=== PATIENT | female | born 1985 | race Caucasian/White ===

== ENCOUNTER 2017-04-16 18:03 | Emergency (ER) | payer BC ==
[2017-04-16 18:14] VITALS: BP 136/72
--- NOTE | 2017-04-16 18:17 | UC ---
HPI Febrile Illness - HPI Summary HPI Summary: 31 female presents with complains of headache, sinus congestion, and sore throat. - History of Current Complaint Chief Complaint: UCGeneralIllness Time Seen by Provider: 04/16/17 18:16 - Allergy/Home Medications Allergies/Adverse Reactions: Allergies Allergy/AdvReac Type Severity Reaction Status Date / Time No Known Allergies Allergy Verified 04/16/17 18:09 Home Medications: Home Medications Control Pill 1 tab PO DAILY 04/16/17 [History Confirmed 04/16/17] Ibuprofen TAB* [Advil TAB*] 400 mg PO Q6H PRN 04/16/17 [History Confirmed ] Multivitamins/Minerals TAB* [Thera M Plus TAB*] 1 tab PO DAILY 04/16/17 [ History Confirmed 04/16/17] PMH/Surg Hx/FS Hx/Imm Hx Endocrine/Hematology History: Denies: Hx Diabetes, Hx Thyroid Disease Cardiovascular History: Denies: Hx Hypertension Respiratory History: Denies: Hx Asthma, Hx Chronic Obstructive Pulmonary Disease (COPD) GI History: Denies: Hx Ulcer Infectious Disease History: No Infectious Disease History: Denies: Hx Hepatitis, Hx Human Immunodeficiency Virus (HIV), History Other Infectious Disease, Traveled Outside the [place] in Last 30 Days - Social History Alcohol Use: None Substance Use Type: Reports: None Smoking Status (MU): Never Smoked Tobacco Have You Smoked in the Last Year: No Review of Systems Constitutional: Negative, Fatigue Skin: Negative Eyes: Negative ENT: Sore Throat, Nasal Discharge, Sinus Congestion Respiratory: Negative Cardiovascular: Negative Gastrointestinal: Negative Genitourinary: Negative Motor: Negative Neurovascular: Negative Musculoskeletal: Negative Neurological: Headache Psychological: Negative All Other Systems Reviewed And Are Negative: Yes Physical Exam Triage Information Reviewed: Yes Vital Signs: Initial Vital Signs Temp 36.9 C 04/16/17 18:10 Pulse 91 04/16/17 18:10 Resp 16 04/16/17 18:10 BP 136/72 04/16/17 18:10 Pulse Ox 100 04/16/17 18:10 Eye Exam: Normal ENT Exam: Normal ENT: Positive: Pharyngeal erythema, Nasal congestion, Nasal drainage Dental Exam: Normal Neck exam: Normal Neck: Positive: 1 Respiratory Exam: Normal Cardiovascular Exam: Normal Abdominal Exam: Normal Musculoskeletal Exam: Normal Neurological Exam: Normal Psychological Exam: Normal Skin Exam: Normal Course/Dx - Diagnoses Clinic Provider Diagnoses: sinusitis Discharge - Discharge Plan Condition: Stable Disposition: HOME Prescriptions: Amoxicillin/Clavulanate TAB* [Augmentin TAB 875*] 875 mg PO BID #20 tab Patient Education Materials: Pharyngitis (ED), Acute Nausea and Vomiting (ED), Sinusitis (ED) Referrals: No Primary Care Phys,NOPCP [Primary Care Provider] -
== END 2017-04-16 18:57 | disposition home or self-care (01) ==
LOC: UCCORT 18:03
DX: J32.9 Chronic sinusitis, unspecified (principal)
CPT/HCPCS: 87651; 99212; G0463

== ENCOUNTER 2017-06-27 13:23 | Emergency (ER) | payer BC ==
[2017-06-27 15:31] VITALS: BP 127/73
--- NOTE | 2017-06-27 15:35 | UC ---
Throat Pain/Nasal Tadeo HPI - HPI Summary HPI Summary: sore throat, nasal congestion, head aches, ear congestion no fevers - History of Current Complaint Chief Complaint: UCGeneralIllness Stated Complaint: SORE THROAT Time Seen by Provider: 06/27/17 15:34 Hx Obtained From: Patient Hx Last Menstrual Period: 2 WKS AGO ?: No Onset/Duration: Gradual Onset, Lasting Days Severity: Mild Cough: Nonproductive Associated Signs & Symptoms: Positive: Sinus Discomfort, Nasal Discharge - Allergies/Home Medications Allergies/Adverse Reactions: Allergies Allergy/AdvReac Type Severity Reaction Status Date / Time No Known Allergies Allergy Verified 06/27/17 13:42 PMH/Surg Hx/FS Hx/Imm Hx Previously Healthy: Yes - Surgical History Surgical History: None - Family History Known Family History: Positive: None - Social History Occupation: Employed Full-time Lives: With Family Alcohol Use: Rare Substance Use Type: None Smoking Status (MU): Never Smoked Tobacco Have You Smoked in the Last Year: No - Immunization History Most Recent Influenza Vaccination: declines Most Recent Tetanus Shot: unknown Most Recent Pneumonia Vaccination: none Review of Systems Constitutional: Negative Skin: Negative Eyes: Negative ENT: Negative, Sore Throat, Ear Ache, Nasal Discharge, Sinus Congestion Respiratory: Negative, Cough Cardiovascular: Negative Gastrointestinal: Negative Genitourinary: Negative Motor: Negative Neurovascular: Negative Musculoskeletal: Negative Neurological: Negative Psychological: Negative Is Patient Immunocompromised?: No All Other Systems Reviewed And Are Negative: Yes Physical Exam Triage Information Reviewed: Yes Appearance: Well-Appearing, No Pain Distress, Well-Nourished Vital Signs: Initial Vital Signs Temp 97 F 06/27/17 13:35 Pulse 95 06/27/17 13:35 Resp 16 06/27/17 13:35 BP 130/85 06/27/17 13:35 Pulse Ox 100 06/27/17 13:35 Vital Signs Reviewed: Yes Eye Exam: Normal Eyes: Positive: Conjunctiva Clear ENT Exam: Normal ENT: Positive: Normal ENT inspection, Hearing grossly normal, TMs normal. Negative: Nasal congestion, Nasal drainage, Trismus, Muffled/hoarse voice Dental Exam: Normal Neck exam: Normal Neck: Positive: Supple, Nontender, No Lymphadenopathy Respiratory Exam: Normal Respiratory: Positive: Chest non-tender, Lungs clear, Normal breath sounds, No respiratory distress, No accessory muscle use Cardiovascular Exam: Normal Cardiovascular: Positive: RRR, No Murmur, Pulses Normal, Brisk Capillary Refill Musculoskeletal Exam: Normal Musculoskeletal: Positive: Strength Intact, ROM Intact, No Edema Neurological Exam: Normal Neurological: Positive: Alert, Muscle Tone Normal Psychological Exam: Normal Skin Exam: Normal Throat Pain/Nasal Course/Dx - Course Assessment/Plan: rest increase fluids, otc medications for pain and symptom management follow with pcp - Differential Dx/Diagnosis Differential Diagnosis/HQI/PQRI: Influenza, Laryngitis, Mononucleosis, Pharyngitis, Sinusitis, URI Provider Diagnoses: Viral Illness URI Discharge - Discharge Plan Condition: Stable Disposition: HOME Patient Education Materials: Upper Respiratory Infection (ED) Referrals: [facility] [place] [facility] [Outside] - If Needed
== END 2017-06-27 15:54 | disposition home or self-care (01) ==
LOC: UCCORT 13:23
DX: B34.9 Viral infection, unspecified (principal); J06.9 Acute upper respiratory infection, unspecified
CPT/HCPCS: 87651; 99212; G0463

== ENCOUNTER 2018-02-26 09:00 | Emergency (ER) | payer BC ==
[2018-02-26 09:41] VITALS: BP 102/55
[2018-02-26] MEDS ORDERED: Fluorescein Sod TOPICAL 0.6* 0.6 MG TEST OPHTHALMIC ONE ×2 (09:47→09:50)
--- NOTE | 2018-02-26 09:56 | UC ---
Eye Complaint HPI - HPI Summary HPI Summary: R eye red since yesterday. this am matted shut. no pain, injury or visual loss. no light sensitivity, itching or sneezing and no uri. wears contacts. - History of Current Complaint Hx Obtained From: Patient Hx Last Menstrual Period: 02/05/18 Onset/Duration: Gradual Onset Timing: Constant Pain Intensity: 0 Aggravating Factor(s): Nothing Alleviating Factor(s): Nothing Associated Signs And Symptoms: Negative: Photophobia, Vision Impairment Bilateral, Fever, Swelling - Risk Factors Penetrating Injury Risk Factor: Negative Globe Rupture Risk Factors: Negative Acute Glaucoma Risk Factors: Negative <Toya Arguello - Last Filed: 02/26/18 10:01> <Evelyne Moreno - Last Filed: 02/26/18 11:50> - History of Current Complaint Stated Complaint: EYE COMPLAINT Time Seen by Provider: 02/26/18 09:36 - Allergies/Home Medications Allergies/Adverse Reactions: Allergies Allergy/AdvReac Type Severity Reaction Status Date / Time No Known Allergies Allergy Verified 02/26/18 09:31 PMH/Surg Hx/FS Hx/Imm Hx Previously Healthy: Yes - Surgical History Surgical History: None - Family History Known Family History: Positive: None - Social History Occupation: Employed Full-time Lives: With Family Alcohol Use: Rare Substance Use Type: None Smoking Status (MU): Never Smoked Tobacco Have You Smoked in the Last Year: No - Immunization History Most Recent Influenza Vaccination: declines Most Recent Tetanus Shot: unknown Most Recent Pneumonia Vaccination: none <Toya Arguello - Last Filed: 02/26/18 10:01> Review of Systems Constitutional: Negative Skin: Negative Eyes: Drainage, Eye Redness ENT: Negative Respiratory: Negative Cardiovascular: Negative Gastrointestinal: Negative Genitourinary: Negative Motor: Negative Neurovascular: Negative Musculoskeletal: Negative Neurological: Negative Psychological: Negative Is Patient Immunocompromised?: No All Other Systems Reviewed And Are Negative: No <Toya Arguello - Last Filed: 02/26/18 10:01> Physical Exam Triage Information Reviewed: Yes Completion Of Physical Exam Limited Due To: Extremis Vital Signs: Initial Vital Signs Temp 98 F 02/26/18 09:31 Pulse 69 02/26/18 09:31 Resp 16 02/26/18 09:31 BP 102/55 02/26/18 09:31 Pulse Ox 100 02/26/18 09:31 Vital Signs Reviewed: Yes Eyes: Positive: Other: - Visual acuity with old glasses. 20/30 OD, OS. 20/25 OU. No periorbital edema or rash. PERRL, EOMI. Conjunctiva OD injected, OS clear. AC's cleared. Lids everted and no FB's. Stained OD and no ulcerations, abrasions, dendrites or perforations. ENT: Positive: Pharynx normal, TMs normal. Negative: Nasal congestion, Nasal drainage Neck: Positive: Supple, Nontender, No Lymphadenopathy, Other: - no auricular adenopathy. Respiratory: Positive: Lungs clear, Normal breath sounds Cardiovascular: Positive: RRR, No Murmur Abdomen Description: Positive: Nontender, No Organomegaly, Soft Bowel Sounds: Positive: Present Musculoskeletal: Positive: ROM Intact Neurological: Positive: Alert Psychological: Positive: Age Appropriate Behavior Skin Exam: Normal <Toya Arguello - Last Filed: 02/26/18 10:01> Vital Signs: Initial Vital Signs Temp 98 F 02/26/18 09:31 Pulse 69 02/26/18 09:31 Resp 16 02/26/18 09:31 BP 102/55 02/26/18 09:31 Pulse Ox 100 02/26/18 09:31 <Evelyne Moreno - Last Filed: 02/26/18 11:50> Eye Complaint Course/Dx - Course Course Of Treatment: no corneal ulcer. will cover R eye with cipro drops given contact use. pt agrees to no contacts until cleared. she is being referred to opthamologist for a recheck - Differential Dx/Diagnosis Provider Diagnoses: Conjunctivitis OD <Toya Arguello - Last Filed: 02/26/18 10:01> Discharge - Sign-Out/Discharge Documenting (check all that apply): Discharge/Admit/Transfer - Billing Disposition and Condition Condition: STABLE Disposition: HOME <Toya Arguello - Last Filed: 02/26/18 10:01> - Billing Disposition and Condition Condition: STABLE Disposition: HOME <Evelyne Moreno - Last Filed: 02/26/18 11:50> - Discharge Plan Condition: Stable Disposition: HOME Prescriptions: Ciprofloxacin 0.3% OPTH.SURESH* [Cipro 0.3% Opth*] 2 drop LEFT EYE Q4H 7 Days #1 btl Patient Education Materials: Conjunctivitis (ED) Referrals: Cierra FRY,Floresita [Medical Doctor] - 3 Days Additional Instructions: NO CONTACT USE UNTIL CLEARED Attestations User Type: Provider - I was available for consult. This patient was seen by the [facility]. The patient was not presented to, seen by, or examined by me. -Alejandro <Evelyne Moreno - Last Filed: 02/26/18 11:50>
== END 2018-02-26 10:17 | disposition home or self-care (01) ==
LOC: UCCORT 09:00
DX: H10.9 Unspecified conjunctivitis (principal)
CPT/HCPCS: 99212; G0463

== ENCOUNTER 2018-04-22 13:10 | Emergency (ER) | payer BC ==
[2018-04-22 14:15] VITALS: BP 110/76
[2018-04-22] MEDS ORDERED: Tetan/Diph/Pertus SYR(Tdap)* 0.5 ML SYR(BOOSTRIX) use SYR IM ONE (14:28)
--- NOTE | 2018-04-22 14:28 | UC ---
Skin Complaint HPI - HPI Summary HPI Summary: Pt c/o stepping on metal screw ~ 1 hour prior to arrival. Pt is unsure of last tetanus. - History of Current Complaint Chief Complaint: UCLowerExtremity Time Seen by Provider: 04/22/18 14:22 Stated Complaint: RT FOOT INJURY Hx Obtained From: Patient Hx Last Menstrual Period: 04/05/18 ?: No Onset/Duration: Sudden Onset, Still Present Skin Exposure Onset/Duration: Minutes Ago - 60 Timing: Constant Onset Severity: Mild Current Severity: None Pain Intensity: 3 Location: Foot (Right) Aggravating Factor(s): Touch Alleviating Factor(s): Other - rest Associated Signs & Symptoms: Positive: Negative - Allergy/Home Medications Allergies/Adverse Reactions: Allergies Allergy/AdvReac Type Severity Reaction Status Date / Time No Known Allergies Allergy Verified 02/26/18 09:31 Home Medications: Home Medications Norgestimate-Ethinyl Estradiol [Ortho-Cyclen 28 Tablet] 1 each PO DAILY [History Confirmed 04/22/18] Review of Systems Constitutional: Negative Skin: Other - puncture wound Eyes: Negative ENT: Negative Respiratory: Negative Cardiovascular: Negative Gastrointestinal: Negative Genitourinary: Negative Motor: Negative Neurovascular: Negative Musculoskeletal: Myalgia - right heel Neurological: Negative Psychological: Negative Is Patient Immunocompromised?: No All Other Systems Reviewed And Are Negative: Yes PMH/Surg Hx/FS Hx/Imm Hx Previously Healthy: Yes - Surgical History Surgical History: None - Family History Known Family History: Positive: Cardiac Disease - Social History Occupation: Employed Full-time Lives: With Family Alcohol Use: Rare Substance Use Type: None Smoking Status (MU): Never Smoked Tobacco Have You Smoked in the Last Year: No - Immunization History Most Recent Influenza Vaccination: declines Most Recent Tetanus Shot: unknown Most Recent Pneumonia Vaccination: none Physical Exam Triage Information Reviewed: Yes Appearance: Well-Appearing Vital Signs: Initial Vital Signs Temp 97.8 F 04/22/18 14:09 Pulse 101 04/22/18 14:09 Resp 18 04/22/18 14:09 BP 110/76 04/22/18 14:09 Pulse Ox 100 04/22/18 14:09 Vital Signs Reviewed: Yes Eye Exam: Normal ENT Exam: Normal ENT: Positive: Hearing grossly normal Neck: Positive: Supple Respiratory: Positive: No respiratory distress Musculoskeletal Exam: Normal Neurological Exam: Normal Psychological Exam: Normal Skin Exam: Other - small, ~ 5mm puncture wound to heel of right foot, medial posterior edge Course/Dx - Differential Diagnoses - Skin Complaint Differential Diagnoses: Other - puncture wound - Diagnoses Provider Diagnoses: puncture wound right foot Discharge - Sign-Out/Discharge Documenting (check all that apply): Patient Departure - Discharge Plan Condition: Stable Disposition: HOME Patient Education Materials: Puncture Wound (DC) Referrals: [facility] – [place] [facility] [Outside] No Primary Care Phys,NOPCP [Primary Care Provider] - - Billing Disposition and Condition Condition: STABLE Disposition: Home
== END 2018-04-22 14:41 | disposition home or self-care (01) ==
LOC: UCCORT 13:10
DX: S91.331A Puncture wound without foreign body, right foot, initial encounter (principal); W22.8XXA Striking against or struck by other objects, initial encounter; Y92.9 Unspecified place or not applicable
CPT/HCPCS: 90471; 90715; 99211; G0463

== ENCOUNTER 2018-11-11 09:28 | Emergency (ER) | payer BC ==
[2018-11-11 11:11] VITALS: BP 147/83
--- NOTE | 2018-11-11 11:35 | UC ---
Throat Pain/Nasal Tadeo HPI - HPI Summary HPI Summary: 32-year-old female presents with 3 day history of sore throat, fever, nausea. Denies ear pain, nasal congestion, dysphagia, cough, chest pain, shortness of breath, abdominal pain, vomiting, or diarrhea. - History of Current Complaint Chief Complaint: UCRespiratory Stated Complaint: SORE THROAT,MONTANEZ,BODY ACHES,CHILLS,NAUSEA Time Seen by Provider: 11/11/18 11:27 Hx Obtained From: Patient Hx Last Menstrual Period: 2 weeks ago Pain Intensity: 7 - Allergies/Home Medications Allergies/Adverse Reactions: Allergies Allergy/AdvReac Type Severity Reaction Status Date / Time No Known Allergies Allergy Verified 11/11/18 11:08 PMH/Surg Hx/FS Hx/Imm Hx Previously Healthy: Yes - Denies significant PMH - Surgical History Surgical History: None - Family History Known Family History: Positive: None, Cardiac Disease - Social History Occupation: Employed Full-time Lives: With Family Alcohol Use: Rare Substance Use Type: None Smoking Status (MU): Never Smoked Tobacco Have You Smoked in the Last Year: No - Immunization History Most Recent Influenza Vaccination: declines Most Recent Tetanus Shot: unknown Most Recent Pneumonia Vaccination: none Review of Systems All Other Systems Reviewed And Are Negative: Yes Constitutional: Positive: Fever, Chills, Fatigue Skin: Negative: Rash Eyes: Negative: Drainage, Eye Redness ENT: Positive: Sore Throat. Negative: Ear Ache, Nasal Discharge, Sinus Congestion, Sinus Pain/Tenderness Respiratory: Negative: Shortness Of Breath, Cough Cardiovascular: Negative: Palpitations, Chest Pain Gastrointestinal: Positive: Nausea. Negative: Abdominal Pain, Vomiting, Diarrhea Genitourinary: Positive: Negative Musculoskeletal: Positive: Negative Neurological: Positive: Negative Is Patient Immunocompromised?: No Physical Exam - Summary Physical Exam Summary: GENERAL APPEARANCE: Well developed, well nourished, alert and cooperative, and appears to be in no acute distress. EYES: Conjunctiva clear. No drainage. Vision is grossly intact. EARS: External auditory canals and tympanic membranes clear, hearing grossly intact. NOSE: No nasal discharge. THROAT: Pharyngeal erythema. Tonsils 2+ with exudate. Oral cavity normal. Teeth and gingiva in good general condition. NECK: Neck supple, non-tender. Mild anterior cervical lymphadenopathy. CARDIAC: Normal S1 and S2. No S3, S4 or murmurs. Rhythm is regular. There is no peripheral edema, cyanosis or pallor. Extremities are warm and well perfused. Capillary refill is less than 2 seconds. LUNGS: Clear to auscultation without rales, rhonchi, wheezing or diminished breath sounds. ABDOMEN: Positive bowel sounds. Soft, nondistended, nontender. No guarding or rebound. No masses or hepatosplenomegally. MUSKULOSKELETAL: ROM intact to all extremities. No joint erythema or tenderness. Normal muscular development. Normal gait. SKIN: Skin normal color, texture and turgor with no lesions or eruptions. Triage Information Reviewed: Yes Vital Signs: Initial Vital Signs Temp 98.4 F 11/11/18 11:08 Pulse 104 11/11/18 11:08 Resp 20 11/11/18 11:08 BP 147/83 11/11/18 11:08 Pulse Ox 100 11/11/18 11:08 Vital Signs Reviewed: Yes Diagnostics - Laboratory Diagnostic Studies Completed/Ordered: Rapid strep positive. Throat Pain/Nasal Course/Dx - Course Course Of Treatment: 32-year-old female presents with 3 day history of sore throat, fever, nausea. Denies ear pain, nasal congestion, dysphagia, cough, chest pain, shortness of breath, abdominal pain, vomiting, or diarrhea. Afebrile. Blood pressure mildly elevated otherwise vital signs stable. Exam reveals an adult female in no acute distress with pharyngeal erythema, 2+ tonsils with exudate, and some mild anterior cervical lymphadenopathy. Remainder of exam was unremarkable. Rapid strep was positive. Will treat for strep pharyngitis with a ten-day course of penicillin VK 500 mg twice a day as well as symptomatic treatment. Patient is to return here or follow-up with her primary care provider in 7 days if symptoms do not improve. Anticipatory guidance and warning symptoms are reviewed with the patient. Verbalizes understanding and agrees with plan of care. - Differential Dx/Diagnosis Differential Diagnosis/HQI/PQRI: Mononucleosis, Pharyngitis, Sinusitis, Tonsillitis, URI Provider Diagnosis: Strep pharyngitis, Elevated blood pressure reading Discharge - Sign-Out/Discharge Documenting (check all that apply): Patient Departure All imaging exams completed and their final reports reviewed: No Studies - Discharge Plan Condition: Stable Disposition: HOME Prescriptions: Penicillin VK 500 MG TAB(NF) [Penicillin VK 500 mg Tab] 500 mg PO QID #20 tab Patient Education Materials: Strep Throat (ED) Forms: *Work Release Referrals: No Primary Care Phys,NOPCP [Primary Care Provider] - [facility] [place] [facility] [Outside] Additional Instructions: Your rapid strep test in the clinic today was positive. We will start you on an antibiotic to treat the infection. Start penicillin VK 1 tab twice a day for 10 days. Be sure to complete the entire course even if feeling better. After you have been on antibiotics for 3 days, throw out your toothbrush and replace with a new one to prevent reinfection. Drink plenty of fluids to avoid dehydration especially if you are running any fever. Use salt water gargles several times a day. Take over the counter acetaminophen (Tylenol) or ibuprofen (Advil, Motrin) according to directions as needed for pain or fever. You may also use Chloraseptic spray or Cepacol lonzenges according to directions which contain a numbing medication and can provide some temporary relief from your sore throat. Return here or follow up with your primary care provider i n7 days if symptoms do not improve. Your blood pressure was elevated in the clinic today. It is recommended that you have this rechecked by a primary care provider within 4 weeks. I have provided you with the number for the [facility] physician referral service if you need assistance with making this appointment. Seek immediate medical attention in the emergency room if you have fever greater than 100.5 F despite taking acetaminophen or ibuprofen, are unable to swallow or develop drooling, are unable to open your mouth fully, are unable to eat or drink, have pain that is not relieved with over the counter pain medication, or have any difficulty breathing. - Billing Disposition and Condition Condition: STABLE Disposition: Home
== END 2018-11-11 11:51 | disposition home or self-care (01) ==
LOC: UCCORT 09:28
DX: J02.0 Streptococcal pharyngitis (principal); R03.0 Elevated blood-pressure reading, without diagnosis of hypertension; R11.0 Nausea
CPT/HCPCS: 87651; 99212; G0463

== ENCOUNTER 2018-11-24 16:04 | Emergency (ER) | payer BC ==
[2018-11-24 17:04] VITALS: BP 117/68
--- NOTE | 2018-11-24 17:22 | UC ---
Throat Pain/Nasal Tadeo HPI - HPI Summary HPI Summary: 32 yo female with sorethroat x hours fever MONTANEZ recently rxed for strep took PCN for 5 days no n/v/d - History of Current Complaint Chief Complaint: UCRespiratory Stated Complaint: THROAT COMPLAINT Time Seen by Provider: 11/24/18 17:06 Hx Obtained From: Patient Hx Last Menstrual Period: 11/22/18 Onset/Duration: Gradual Onset, Lasting Hours Severity: Moderate Pain Intensity: 6 Pain Scale Used: 0-10 Numeric Cough: None Associated Signs & Symptoms: Positive: Fever - Epiglottits Risk Factors Epiglottis Risk Factors: Negative - Allergies/Home Medications Allergies/Adverse Reactions: Allergies Allergy/AdvReac Type Severity Reaction Status Date / Time No Known Allergies Allergy Verified 11/24/18 17:00 PMH/Surg Hx/FS Hx/Imm Hx Previously Healthy: Yes - Surgical History Surgical History: None - Family History Known Family History: Positive: Cardiac Disease, Hypertension - Social History Alcohol Use: Rare Substance Use Type: None Smoking Status (MU): Never Smoked Tobacco Have You Smoked in the Last Year: No - Immunization History Most Recent Influenza Vaccination: declines Most Recent Tetanus Shot: unknown Most Recent Pneumonia Vaccination: none Review of Systems All Other Systems Reviewed And Are Negative: Yes Constitutional: Positive: Fever Skin: Positive: Negative Eyes: Positive: Negative ENT: Positive: Sore Throat Respiratory: Positive: Negative Cardiovascular: Positive: Negative Gastrointestinal: Positive: Negative Genitourinary: Positive: Negative Motor: Positive: Negative Neurovascular: Positive: Negative Musculoskeletal: Positive: Negative Neurological: Positive: Negative Psychological: Positive: Negative Physical Exam Triage Information Reviewed: Yes Appearance: Well-Appearing, No Pain Distress, Well-Nourished Vital Signs: Initial Vital Signs Temp 97.4 F 11/24/18 17:01 Pulse 87 11/24/18 17:01 Resp 16 11/24/18 17:01 BP 117/68 11/24/18 17:01 Pulse Ox 100 11/24/18 17:01 Vital Signs Reviewed: Yes Eyes: Positive: Conjunctiva Clear ENT: Positive: Hearing grossly normal. Negative: Nasal congestion, Nasal drainage, Trismus, Muffled voice Neck: Positive: Supple, Nontender, Enlarged Nodes @ - ant cerv Respiratory: Positive: Lungs clear, Normal breath sounds, No respiratory distress, No accessory muscle use Cardiovascular: Positive: RRR, No Murmur Musculoskeletal: Positive: ROM Intact, No Edema Neurological: Positive: Alert Psychological Exam: Normal Skin Exam: Normal Diagnostics - Laboratory Diagnostic Studies Completed/Ordered: strep (+) Throat Pain/Nasal Course/Dx - Differential Dx/Diagnosis Provider Diagnosis: Strep throat Discharge - Sign-Out/Discharge Documenting (check all that apply): Patient Departure All imaging exams completed and their final reports reviewed: No Studies - Discharge Plan Condition: Stable Disposition: HOME Prescriptions: Cephalexin CAP* [Keflex CAP*] 500 mg PO TID #30 cap Patient Education Materials: Strep Throat (ED) Forms: *Work Release Referrals: No Primary Care Phys,NOPCP [Primary Care Provider] - - Billing Disposition and Condition Condition: STABLE Disposition: Home
== END 2018-11-24 17:28 | disposition home or self-care (01) ==
LOC: UCCORT 16:04
DX: J02.0 Streptococcal pharyngitis (principal)
CPT/HCPCS: 87651; 99212; G0463

== ENCOUNTER 2019-01-05 19:59 | Emergency (ER) | payer BC, OTHER ==
[2019-01-05 20:11] VITALS: BP 136/77
--- NOTE | 2019-01-05 20:40 | UC ---
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 Noticed bruising on forehead, concerned with head injury, headache at present." -she works at [employer]. she took a resident to visit his GM at the hospital today. she says it was very emotional and anxiety provoking situation bc tehy didnt know what state she would be in. Charo gets very queesy in hospital settings. she was very uncomfortable. she was trying to get [facility] visit to wrap up. she was feeling stuffy and tried to get out of the room. she felt herself getting lightheaded and pre-sycopal but she continued to try to get out of [facility] room befor passingout. she got into hallways and syncope was witnessed. hit cart with left forehead. landed on left arm and right knee. witnesses reports syncope lasted 5 secs. she recovered quickly w/in 1 min. no confusion. no loss b/b fxn. no drooling. did not bite tongue. no witnesses seizure. no post -ictal state. -denies . has not missed any pills. she skipped her placebo pills 2 wks ago and went right straight through to next pack bc she was going on vacation and didnt want to get her period. -she has felt fine since. she is hungry and has a mild MONTANEZ, especially over area of bruis on left forhead. -not lightheaded or dizzy. no cp/sob/palpitations. overall healthy. not on meds. no w/n/t. no confusion. no nausea/photphobia - History Of Current Complaint Chief Complaint: UCHeadInjury Stated Complaint: WC-PASSED OUT AT WORK,LEFT ARM/RT KNEE INJURY Time Seen by Provider: 01/05/19 20:18 Hx Last Menstrual Period: 12/21/17 Pain Intensity: 5 - Allergies/Home Medications Allergies/Adverse Reactions: Allergies Allergy/AdvReac Type Severity Reaction Status Date / Time No Known Allergies Allergy Verified 01/05/19 20:07 PMH/Surg Hx/FS Hx/Imm Hx Previously Healthy: Yes - Surgical History Surgical History: None - Family History Known Family History: Positive: Cardiac Disease, Hypertension - Social History Alcohol Use: Rare Substance Use Type: None Smoking Status (MU): Never Smoked Tobacco Have You Smoked in the Last Year: No - Immunization History Most Recent Influenza Vaccination: declines Most Recent Tetanus Shot: unknown Most Recent Pneumonia Vaccination: none Review of Systems All Other Systems Reviewed And Are Negative: Yes Constitutional: Positive: Negative Skin: Positive: Negative Eyes: Positive: Negative ENT: Positive: Negative. Negative: Epistaxis, Ear Ache - no ear dc Respiratory: Positive: Negative Cardiovascular: Positive: Negative. Negative: Palpitations, Chest Pain Gastrointestinal: Positive: Negative. Negative: Vomiting, Nausea Genitourinary: Positive: Negative Motor: Positive: Negative Neurovascular: Positive: Negative Musculoskeletal: Positive: Other: - bruising over left extensor distal arm. Neurological: Positive: Headache. Negative: Weakness, Paresthesia, Numbness Psychological: Positive: Negative Is Patient Immunocompromised?: No Physical Exam Triage Information Reviewed: Yes Appearance: Well-Appearing, No Pain Distress, Well-Nourished - very pleasnat, smiling. ambulating w/o difficulty Vital Signs: Initial Vital Signs Temp 97.9 F 01/05/19 20:03 Pulse 82 01/05/19 20:03 Resp 17 01/05/19 20:03 BP 136/77 01/05/19 20:03 Pulse Ox 100 01/05/19 20:03 Vital Signs Reviewed: Yes Eye Exam: Normal Eyes: Positive: Conjunctiva Clear ENT Exam: Normal ENT: Positive: Hearing grossly normal, Pharynx normal, TMs normal - intact, Uvula midline. Negative: Sinus tenderness Dental Exam: Normal Neck exam: Normal Neck: Positive: Supple, Nontender, No Lymphadenopathy Respiratory Exam: Normal Respiratory: Positive: Chest non-tender, Lungs clear, Normal breath sounds, No respiratory distress, No accessory muscle use. Negative: Crackles, Rhonchi, Stridor, Wheezing Cardiovascular Exam: Normal Cardiovascular: Positive: RRR, No Murmur, Pulses Normal, Brisk Capillary Refill Abdominal Exam: Normal Abdomen Description: Positive: Nontender, Soft. Negative: CVA Tenderness (R), CVA Tenderness (L), Distended, Hepatomegaly, Splenomegaly Bowel Sounds: Positive: Present Musculoskeletal: Positive: Other: - left distal extensor humerus w/ brusing. FROM elbow. mildy tender. Neurological Exam: Normal Neurological: Positive: Other: - CR III-XII intact. UE & LE 5/5 strength prox and distal muscle groups. no dysdiadokinesia. neg rhomberg. neg ronator drift. nml tandem walk, nml toe and heel walk. sens intact to LT B/L UE & LE Psychological Exam: Normal Skin Exam: Normal Syncope Course/Dx - Course Course Of Treatment: -urine HCG neg -xray left humerus. xray is read by myself as no fracture, not a RAD. pt understands that it will be read officially by RAD in AM and should get a call if there is inconsistency. -CT head: negative. copy printed and give to pt -disc potential for concussion -EKG: NSR, nml axis, no AV/IV changes. no ST/T changes. no prev to compare. -I strongly encouraged her to FU for full evaluation w/ labs to eval for anemia , thyroid, electrolyte or kidney abndomality, ECHO and at least 48 hr Holter to eval for other causes. I suspect vaso-vagal syncope based on hx and presentation howvere other causes should be ruled out. she understood me well and is very agreeable w/ plan. - Differential Dx/Diagnosis Differential Diagnosis/HQI/PQRI: Hypoglycemia, Hypovolemia, Seizure, Vasovagal Episode Provider Diagnosis: Syncope and collapse, Headache, Left arm pain Discharge - Sign-Out/Discharge Documenting (check all that apply): Patient Departure All imaging exams completed and their final reports reviewed: No - Discharge Plan Condition: Stable Disposition: HOME Patient Education Materials: Syncope (ED) Referrals: No Primary Care Phys,NOPCP [Primary Care Provider] - [facility] [Provider Group] - 1 Week Additional Instructions: CT of your head is read as negative. We are giving you a copy of the report. We don't haev the official read of your left arm xray and you should get a call tomorrow if the Radiologist see's something that I did not. -Make sure to follow up with a PCP in 1 week. I recommend further evaluation of the syncope with lab work, ECHO and possible holter monitor. You should also follow up for potential concussion since you have a headache. -Tylenol/ibuporfen will be helpful for headache. -You should call 911 and go to ER if symptoms recur - Billing Disposition and Condition Condition: STABLE Disposition: Home
--- NOTE | 2019-01-06 08:26 | UC ---
- Progress Note Progress Note: ct head report: FINDINGS: Brain: Normal. No hemorrhage. No significant white matter disease. No edema. Ventricles: Normal. No ventriculomegaly. Bones/joints: Unremarkable. No acute fracture. Sinuses: Visualized sinuses are unremarkable. No acute sinusitis. Mastoid air cells: Visualized mastoid air cells are unremarkable. No mastoid effusion. Soft tissues: Unremarkable. IMPRESSION: No acute intracranial abnormality. Course/Dx - Diagnoses Provider Diagnoses: Syncope and collapse, Headache, Left arm pain Discharge - Sign-Out/Discharge Documenting (check all that apply): Patient Departure All imaging exams completed and their final reports reviewed: Yes - Discharge Plan Condition: Stable Disposition: HOME Patient Education Materials: Syncope (ED) Referrals: [facility] [Provider Group] - 1 Week No Primary Care Phys,NOPCP [Primary Care Provider] - Additional Instructions: CT of your head is read as negative. We are giving you a copy of the report. We don't haev the official read of your left arm xray and you should get a call tomorrow if the Radiologist see's something that I did not. -Make sure to follow up with a PCP in 1 week. I recommend further evaluation of the syncope with lab work, ECHO and possible holter monitor. You should also follow up for potential concussion since you have a headache. -Tylenol/ibuporfen will be helpful for headache. -You should call 911 and go to ER if symptoms recur - Billing Disposition and Condition Condition: STABLE Disposition: Home
== END 2019-01-05 21:55 | disposition home or self-care (01) ==
LOC: UCCORT 19:59
DX: R51 Headache (principal); R55 Syncope and collapse; M79.602 Pain in left arm
CPT/HCPCS: 70450; 84702; 93005; 99211; G0463

== ENCOUNTER 2019-08-07 08:48 | Emergency (ER) | payer BC ==
[2019-08-07 09:27] VITALS: BP 106/59
--- NOTE | 2019-08-07 09:55 | UC ---
Eye Complaint HPI - HPI Summary HPI Summary: 33 y/o female presents to the urgent care c/o RT eye redness w/ yellowish drainage since yesterday. Pt reports she removed her contact lenses last night and she noticed her RT eye was red and irritated, This morning she woke up w/ yellowish crusting and her Rt upper eyelid is mildly swollen. Pt denies fever, photophobia, visual changes, blurred vision, eye pain, MONTANEZ, dizziness, SOB, chest pain, abdominal pain, N/V/d. - History of Current Complaint Chief Complaint: UCEye Stated Complaint: BI LAT EYE CONCERN Time Seen by Provider: 08/07/19 09:54 Hx Obtained From: Patient Hx Last Menstrual Period: 07/26/19 ?: No Onset/Duration: Gradual Onset, Lasting Days - 1 day, Worse Since - this morning w/ yellowish eye drainage forn RT eye Timing: Constant Severity Initially: Mild Severity Currently: Mild Pain Intensity: 4 Pain Scale Used: 0-10 Numeric Location of Injury: Conjunctiva - RT eye redness and midl swelling w/ yelelowish drainage Character: Dull Aggravating Factor(s): Blinking Alleviating Factor(s): Nothing Associated Signs And Symptoms: Positive: Drainage (Purulent) - yellowish from Rt eye, Swelling - discrete over RT upper eyelid. Negative: Fever - Risk Factors Penetrating Injury Risk Factor: Negative Globe Rupture Risk Factors: Negative Acute Glaucoma Risk Factors: Negative Optic Artery Occlusion Risk Factors: Negative - Allergies/Home Medications Allergies/Adverse Reactions: Allergies Allergy/AdvReac Type Severity Reaction Status Date / Time No Known Allergies Allergy Verified 08/07/19 09:17 PMH/Surg Hx/FS Hx/Imm Hx Previously Healthy: Yes - Pt denies PMHX - Surgical History Surgical History: None - Family History Known Family History: Positive: Cardiac Disease, Hypertension - Social History Occupation: Employed Full-time Lives: With Family Alcohol Use: Rare Substance Use Type: None Smoking Status (MU): Never Smoked Tobacco Have You Smoked in the Last Year: No - Immunization History Most Recent Influenza Vaccination: declines Most Recent Tetanus Shot: unknown Most Recent Pneumonia Vaccination: none Review of Systems All Other Systems Reviewed And Are Negative: Yes Constitutional: Positive: Negative Skin: Positive: Negative Eyes: Positive: Drainage - RT yellowish drainage this morning, Eye Redness - RT. Negative: Blurred Vision, Photophobia ENT: Positive: Negative Respiratory: Positive: Negative Cardiovascular: Positive: Negative Gastrointestinal: Positive: Negative Genitourinary: Positive: Negative Motor: Positive: Negative Neurovascular: Positive: Negative Musculoskeletal: Positive: Negative Neurological: Positive: Negative Psychological: Positive: Negative Is Patient Immunocompromised?: No Physical Exam - Summary Physical Exam Summary: Vital Signs Reviewed: Yes General: Well appearing, well nourished female in no apparent pain distress Eyes: Positive: RT Conjunctiva Inflamed, LF clear - Visual acuity: WNL,Visual rosa: full to confrontation.mild periorbital soft tissue swelling at the RT upper eyelid with no erythema and mild tender to palpation, no stye observed. PERRLA, EOMI intact w/out limitation or complaint of pain. eyelashes clear. mild tearing and yellowish drainage observed. No ciliary flush. No chemosis, No photophobia. Normal fundoscopic exam; no proptosis, exophthalmos, nystagmus. ENT: Positive: Normal ENT inspection, Hearing grossly normal, Pharynx normal, Nasal congestion, Nasal drainage - clear, TMs normal - B/L external ear canal clear , TM's WNL. Negative: Tonsillar swelling, Tonsillar exudate Neck: Positive: Supple, Nontender, No Lymphadenopathy Respiratory: Positive: Chest nontender, Lungs clear, Normal breath sounds, No respiratory distress Cardiovascular: Positive: RRR, No Murmur, Pulses Normal, Brisk Capillary Refill Abdomen Description: Positive: Nontender, No Organomegaly, Soft. Negative: CVA Tenderness (R), CVA Tenderness (L) Bowel Sounds: Positive: Present Musculoskeletal: Positive: Strength Intact, ROM Intact, No Edema Neurological Exam: Normal Psychological Exam: Normal Skin Exam: Normal Triage Information Reviewed: Yes Vital Signs: Initial Vital Signs Temp 97.7 F 08/07/19 09:17 Pulse 72 08/07/19 09:17 Resp 18 08/07/19 09:17 BP 106/59 08/07/19 09:17 Pulse Ox 99 08/07/19 09:17 Eye Complaint Course/Dx - Course Course Of Treatment: 33 y/o female presents to the urgent care c/o RT eye redness w/ yellowish drainage since yesterday. Pt reports she removed her contact lenses last night and she noticed her RT eye was red and irritated, This morning she woke up w/ yellowish crusting and her Rt upper eyelid is mildly swollen. Pt denies fever, photophobia, visual changes, blurred vision, eye pain, MONTANEZ, dizziness, SOB, chest pain, abdominal pain, N/V/d. Hx obtained. PE abnormal findings: B/L PERRLA , EOMI, fundi grossly normal, no tender to palpation. RT conjunctiva moderately injected, mild yellowish discharge, LF conjunctiva clear. Most likely Bacterial conjunctivitis of RT eye. Pt Rx Ciprofloxacin ophthalmic drops and advised if symptoms do not improve or worsen to f/u with Auto Driver Dr Norton in 3 days. Recommended not to use her contact lenses until cmplete resolution of symptoms and apply warm compresses w/ massage, she also may be developing an stye on her RT upper eyelid. D/C instructions explained. Pt understood and agreed w/ plan of care. . - Differential Dx/Diagnosis Differential Diagnosis/HQI/PQRI: Conjunctivitis, Keratitis, Periorbital Cellulitis, Orbital Cellulitis, Other - stye Provider Diagnosis: Acute conjunctivitis, right eye Discharge ED - Sign-Out/Discharge Documenting (check all that apply): Patient Departure - D/c home All imaging exams completed and their final reports reviewed: No Studies - Discharge Plan Condition: Stable Disposition: HOME Prescriptions: Ciprofloxacin 0.3% OPTH.SURESH* [Cipro 0.3% Opth*] 1 drop RIGHT EYE Q2H #1 btl Patient Education Materials: Conjunctivitis (ED) Referrals: [facility] [Outside] - 3 Days Floresita Norton MD [Medical Doctor] - 3 Days Additional Instructions: 1-Please apply ophthalmic drops as instructed and finish the full course of treatment to avoid recurrent infection. encourage hand washing. Do not wear contact lenses until symptoms resolve completely. Apply warm compresses over Rt eye you may be developing also a stye 2-If you do not improve or if symptoms worsen please f/u with modeling teacher DR Norton in 3 days for further evaluation and treatment - Billing Disposition and Condition Condition: STABLE Disposition: Home
[2019-08-07] MEDS ORDERED: Naproxen TAB* 250 MG PO ONE (10:08)
== END 2019-08-07 10:30 | disposition home or self-care (01) ==
LOC: UCCORT 08:48
DX: H10.31 Unspecified acute conjunctivitis, right eye (principal)
CPT/HCPCS: 99212; G0463

== ENCOUNTER 2019-12-11 19:20 | Emergency (ER) | payer BC, OTHER ==
[2019-12-11 21:00] VITALS: BP 127/79
--- NOTE | 2019-12-11 21:34 | UC ---
Lower Extremity/Ankle HPI - HPI Summary HPI Summary: 33 yo female stepped in a pot hole tonight at work able to bear wt with a limp no hx ankle injury - History of Current Complaint Chief Complaint: UCLowerExtremity Stated Complaint: S/P FALL, LEFT ANKLE INJURY Time Seen by Provider: 12/11/19 21:04 Hx Obtained From: Patient Hx Last Menstrual Period: 11/14/ Onset/Duration: Sudden Onset Severity Initially: Moderate Severity Currently: Moderate Pain Intensity: 6 Aggravating Factor(s): Standing, Ambulation Alleviating Factor(s): Rest, Elevation Able to Bear Weight: Yes Related History: Occupational Injury Feet (Multiple View): 1 - tender/swollen - Allergies/Home Medications Allergies/Adverse Reactions: Allergies Allergy/AdvReac Type Severity Reaction Status Date / Time No Known Allergies Allergy Verified 12/11/19 21:01 Home Medications: Home Medications Norgestimate-Ethinyl Estradiol [Ortho-Cyclen 28 Tablet] 1 each PO DAILY [History Confirmed 08/07/19] PMH/Surg Hx/FS Hx/Imm Hx Previously Healthy: Yes - Surgical History Surgical History: None - Family History Known Family History: Positive: Cardiac Disease, Hypertension - Social History Alcohol Use: Rare Substance Use Type: None Smoking Status (MU): Never Smoked Tobacco Have You Smoked in the Last Year: No - Immunization History Most Recent Influenza Vaccination: declines Most Recent Tetanus Shot: 04/22/18 Most Recent Pneumonia Vaccination: none Review of Systems All Other Systems Reviewed And Are Negative: Yes Constitutional: Positive: Negative Skin: Positive: Negative Eyes: Positive: Negative ENT: Positive: Negative Respiratory: Positive: Negative Cardiovascular: Positive: Negative Gastrointestinal: Positive: Negative Genitourinary: Positive: Negative Motor: Positive: Negative Neurovascular: Positive: Negative Musculoskeletal: Positive: Arthralgia - left ankle Neurological/Mental Status: Positive: Negative Psychological: Positive: Negative Physical Exam Triage Information Reviewed: Yes Appearance: Well-Appearing, No Pain Distress, Well-Nourished Vital Signs: Initial Vital Signs Temp 98.6 F 12/11/19 20:55 Pulse 75 12/11/19 20:55 Resp 20 12/11/19 20:55 BP 127/79 12/11/19 20:55 Pulse Ox 100 12/11/19 20:55 Vital Signs Reviewed: Yes Eyes: Positive: Conjunctiva Clear ENT: Positive: Hearing grossly normal, Uvula midline. Negative: Nasal congestion, Nasal drainage, Tonsillar swelling, Tonsillar exudate, Trismus, Muffled voice, Hoarse voice Dental Exam: Normal Neck: Positive: Supple, Nontender, No Lymphadenopathy Respiratory: Positive: Lungs clear, Normal breath sounds, No respiratory distress, No accessory muscle use Cardiovascular: Positive: RRR, No Murmur Musculoskeletal: Positive: ROM Intact, Other: - antalgic gait/see image Neurological: Positive: Alert Psychological Exam: Normal Skin Exam: Normal Diagnostics - Radiology No standard instances Radiology Interpretation Completed By: ED Physician Summary of Radiographic Findings: lat sts/no fracture noted Lower Extremity Course/Dx - Differential Dx/Diagnosis Provider Diagnosis: Left ankle sprain Discharge ED - Sign-Out/Discharge Documenting (check all that apply): Patient Departure All imaging exams completed and their final reports reviewed: No - Discharge Plan Condition: Stable Disposition: HOME Patient Education Materials: Ankle Sprain (ED), R.I.C.E. Treatment (ED) Forms: *Work Release Referrals: Maxime Pennington MD [Medical Doctor] - 1 Week (if not better) Additional Instructions: tylenol or advil for pain - Billing Disposition and Condition Condition: STABLE Disposition: Home
--- NOTE | 2019-12-12 08:26 | UC ---
- Progress Note Progress Note: xray report left ankle : IMPRESSION: NO ACUTE OSSEOUS INJURY. IF SYMPTOMS PERSIST, RECOMMEND REPEAT IMAGING. Course/Dx - Diagnoses Provider Diagnoses: Left ankle sprain Discharge ED - Sign-Out/Discharge Documenting (check all that apply): Patient Departure All imaging exams completed and their final reports reviewed: Yes - Discharge Plan Condition: Stable Disposition: HOME Patient Education Materials: Ankle Sprain (ED), R.I.C.E. Treatment (ED) Forms: *Work Release Referrals: Maxime Pennington MD [Medical Doctor] - 1 Week (if not better) Additional Instructions: tylenol or advil for pain - Billing Disposition and Condition Condition: STABLE Disposition: Home
== END 2019-12-11 22:15 | disposition home or self-care (01) ==
LOC: UCCORT 19:20
DX: S93.402A Sprain of unspecified ligament of left ankle, initial encounter (principal); X50.9XXA Other and unspecified overexertion or strenuous movements or postures, initial encounter; Y92.9 Unspecified place or not applicable; Y99.0 Civilian activity done for income or pay
CPT/HCPCS: 99213; G0463